=== PATIENT | male | born 1980 | race African-American/Black ===

== ENCOUNTER 2018-12-13 23:53 | Emergency (ER) | payer MEDICAID ==
[~2018-12-13] VITALS: Ht 172.7 cm; Wt 103.9 kg
[~2018-12-13 23:53] MED LIST: DOXYCYCLINE MO100 MG ORAL
[2018-12-14 00:05] VITALS: BP 141/96
--- NOTE | 2018-12-14 00:05 | NUR ---
ED Nurse Note: Patient walk in c/o STD check. Patient reports burning sensation with urination and small amount of discharge. Patient states he had unprotected sex on Wednesday and his partner informed him that she might have gonorrhea. pt denies any pain. pt stated if he can be tested to std. pt able to give urine specimen. will continue to monitor.
[2018-12-14] MEDS ORDERED: NKM (00:06)
--- NOTE | 2018-12-14 00:26 | Emergency Room Report ---
History of Present Illness General Chief Complaint: Male Urogenital Problems Source: Patient Present Illness HPI Is a 30-year-old male with no past medical history. He presents with chief complaint of dysuria. He had unprotected sex 4 days ago. He received phone call a couple days ago saying that she was positive for gonorrhea. He said he felt "spooked." Now he complaining of some dysuria. No discharge. No fever chills but no nausea no vomiting. No other complaint. Allergies: Coded Allergies: No Known Allergies (Unverified , 04/24/16) Patient History Past Medical History: see triage record, old chart reviewed Past Surgical History: none Pertinent Family History: none Social History: Denies: smoking Immunizations: other Reviewed Nursing Documentation: PMH: Agreed; PSxH: Agreed Nursing Documentation-PMH Past Medical History: No History, Except For Review of Systems Eye: Denies: eye pain, blurred vision ENT: Denies: ear pain, nose congestion, throat swelling Respiratory: Denies: cough, shortness of breath Cardiovascular: Denies: chest pain, palpitations Gastrointestinal: Denies: abdominal pain, diarrhea, nausea, vomiting Musculoskeletal: Denies: back pain, joint pain Skin: Denies: rash Neurological: Denies: headache, numbness Endocrine: Denies: increased thirst, increased urine Hematologic/Lymphatic: Denies: easy bruising All Other Systems: negative except mentioned in HPI Physical Exam Vital Signs Date Time Temp Pulse Resp B/P (MAP) Pulse Ox O2 Delivery O2 Flow Rate FiO2 12/14/18 00:01 98.1 81 16 141/96 96 Room Air vitals normal except for high blood pressure Sp02 EP Interpretation: reviewed, normal General Appearance: well appearing, no apparent distress, alert Head: normocephalic, atraumatic Eyes: bilateral eye PERRL, bilateral eye EOMI ENT: hearing grossly normal, normal pharynx Neck: full range of motion, supple, no meningismus Respiratory: chest non-tender, lungs clear, normal breath sounds Cardiovascular #1: regular rate, rhythm, no murmur Gastrointestinal: normal bowel sounds, non tender, no mass, no organomegaly, no bruit, non-distended Musculoskeletal: back normal, gait/station normal, normal range of motion Psychiatric: mood/affect normal Skin: warm/dry Medical Decision Making Diagnostic Impression: Primary Impression: Urethritis ER Course patient presents with urethritis. We'll go ahead and treat for gonorrhea and chlamydia. Recommend outpatient testing for HIV, hepatitis, syphilis and other STDs. Last Vital Signs Date Time Temp Pulse Resp B/P (MAP) Pulse Ox O2 Delivery O2 Flow Rate FiO2 12/14/18 00:05 98.1 78 16 141/96 96 Room Air Status: improved Disposition: HOME, SELF-CARE Condition: Stable Patient Instructions: Urethritis, Adult Additional Instructions: Follow-up with your doctor as needed. Have all partners treated. Recommend outpatient testing for HIV, hepatitis, syphilis and other STDs. Return for any concern. Vu Mancuso MD Dec 14, 2018 00:26
[2018-12-14] MEDS ORDERED: Lidocaine 1% MPF 10mg/ml 5ml INJ ONE (00:30)
[2018-12-14] MEDS ORDERED: Azithromycin 250mg tab ORAL ONE (00:30)
[2018-12-14 00:40] VITALS: BP 141/96
--- NOTE | 2018-12-14 00:41 | NUR ---
ED Nurse Note: Pt claered DC by THOMAS. Pt is AO x 4times, VSS, on room air no distress. ID bend removed. Belongings given back to Pt. DC and Meds instructions given to Pt, Pt understood well. Pt walked out unit with steady gait.
== END 2018-12-14 00:54 | disposition home or self-care (01) ==
LOC: EMR 12-14 00:39
DX: N34.2 Other urethritis (principal)
CPT/HCPCS: 96372; 96374; 99284; J0696; Q0144

== ENCOUNTER 2020-05-26 21:21 | Emergency (ER) | payer MEDICAID ==
[~2020-05-26] VITALS: Ht 172.7 cm; Wt 99.8 kg
[~2020-05-26 21:21] MED LIST changes: +NKM
[2020-05-26 21:33] VITALS: BP 132/79
--- NOTE | 2020-05-26 21:42 | Emergency Room Report ---
History of Present Illness General Chief Complaint: Male Urogenital Problems Source: Patient Present Illness HPI 39-year-old male with no signal past medical history here complaining of 2 days of dysuria and pressure and penile area after being sexually active with a new partner. Patient denies any penile discharge as well as urinary frequency urgency. Denies any hematuria, fever and chills, pruritus in the area. Denies any nausea vomiting. Denies any abdominal pain. Does not know if partner is positive for anything. Patient is interested to receive treatment for possible chlamydia and gonorrhea. Allergies: Coded Allergies: No Known Allergies (Unverified , 04/24/16) COVID-19 Screening Contact w/high risk pt: No Experienced COVID-19 symptoms?: No COVID-19 Testing performed [place]: No Patient History Past Medical History: see triage record Past Surgical History: none Pertinent Family History: none Immunizations: UTD Reviewed Nursing Documentation: PMH: Agreed; PSxH: Agreed Nursing Documentation-PMH Past Medical History: No Stated History Review of Systems All Other Systems: negative except mentioned in HPI Physical Exam Vital Signs Date Time Temp Pulse Resp B/P (MAP) Pulse Ox O2 Delivery O2 Flow Rate FiO2 05/26/20 21:23 98.2 88 18 132/79 (96) 97 Room Air Sp02 EP Interpretation: reviewed, normal General Appearance: no apparent distress, alert, GCS 15, non-toxic Head: normocephalic, atraumatic Eyes: bilateral eye normal inspection, bilateral eye PERRL ENT: hearing grossly normal, normal pharynx, no angioedema, normal voice Neck: full range of motion, supple/symm/no masses Respiratory: chest non-tender, lungs clear, normal breath sounds, no rhonchi, speaking full sentences Cardiovascular #1: regular rate, rhythm, no edema, no murmur Gastrointestinal: normal bowel sounds, non tender, soft, non-distended, no guarding, no rebound Rectal: deferred Genitourinary: no CVA tenderness Musculoskeletal: back normal Neurologic: alert, motor strength/tone normal, oriented x3, sensory intact, responsive, speech normal Psychiatric: judgement/insight normal, memory normal, mood/affect normal, no suicidal/homicidal ideation Skin: no rash Lymphatic: no adenopathy Medical Decision Making PA Attestation All diagnoses and treatment plans were reviewed and discussed with my supervising physician Dr. Cardoso Diagnostic Impression: Primary Impression: STD exposure Additional Impression: UTI (urinary tract infection) ER Course 39-year-old male with no signal past medical history here complaining of 2 days of dysuria and pressure and penile area after being sexually active with a new partner. Patient denies any penile discharge as well as urinary frequency urgency. Denies any hematuria, fever and chills, pruritus in the area. Denies any nausea vomiting. Denies any abdominal pain. Does not know if partner is positive for anything. Patient is interested to receive treatment for possible chlamydia and gonorrhea. Ddx considered but are not limited to: UTI, chlamydia, Gonorrhea, syphilis, HIV , herpes 1 or 2 Vital signs: are WNL, pt. is afebrile H&PE are most consistent with : STD exposure, UTI ORDERS: UA, urince cx, keflex ED INTERVENTIONS: Rocephin IM, Azithromycin PO DISCHARGE: At this time pt. is stable for d/c to home. Will provide printed patient care instructions, and any necessary prescriptions. Care plan and follow up instructions have been discussed with the patient prior to discharge. Take medication as directed, follow primary care provider, use condoms during sexual encounter, if worsening symptoms return to the emergency room Last Vital Signs Date Time Temp Pulse Resp B/P (MAP) Pulse Ox O2 Delivery O2 Flow Rate FiO2 05/26/20 21:23 98.2 88 18 132/79 (96) 97 Room Air Disposition: HOME, SELF-CARE Condition: Stable Scripts No Active Prescriptions or Reported Meds Patient Instructions: Chlamydia, Male, Gonorrhea, Urinary Tract Infection Additional Instructions: Take medication as directed, follow primary care provider, use condoms during sexual encounter, if worsening symptoms return to the emergency room Lyle Montero May 26, 2020 21:42
[2020-05-26] MEDS ORDERED: CEPHALEXIN500 MG ORAL (21:43)
[2020-05-26] MEDS ORDERED: Lidocaine 1% MPF 10mg/ml 5ml INJ ONE (21:45)
[2020-05-26] MEDS ORDERED: Azithromycin 250mg tab ORAL ONE (21:45)
[2020-05-26 21:59] LABS: APPEARANCE,URINE CLEAR; BILIRUBIN, URINE NEGATIVE (NEGATIVE); GLUCOSE, URINE (UA) NEGATIVE (NEGATIVE); KETONES,URINE 1+ (NEGATIVE); LEUKOCYTE ESTERASE ,URINE 1+ (NEGATIVE); NITRITE,URINE NEGATIVE (NEGATIVE); PH,URINE 6 (4.5-8.0); PROTEIN,URINE 2+ (NEGATIVE); UROBILINOGEN,URINE 8 MG/DL (0.0-1.0)
[2020-05-26 22:04] VITALS: BP 130/72
[2020-05-26 22:06] LABS: COLOR,URINE YELLOW
== END 2020-05-26 22:04 | disposition home or self-care (01) ==
LOC: EMR 21:56
DX: N39.0 Urinary tract infection, site not specified (principal); Z20.2 Contact with and (suspected) exposure to infections with a predominantly sexual mode of transmission
CPT/HCPCS: 81003; 96372; 96374; J0696; Q0144; Z7502; 99284